=== PATIENT | female | born 1990 | race Caucasian/White ===

== ENCOUNTER 2016-09-14 09:03 | Emergency (ER) | payer MEDICAID ==
[~2016-09-14] VITALS: Ht 167.6 cm; Wt 77.1 kg
[2016-09-14 09:07] VITALS: BP 122/85; PULSE 93; RESP 18; TEMP 98.1; O2SAT 99
--- NOTE | 2016-09-14 09:12 | NUR ---
Patient to ER bed 5 to gown for evaluation. Side rails up. Report given to Rickey ARREOLA.
--- NOTE | 2016-09-14 09:15 | NUR ---
Pt c/o extended period x12 days. Denies severe pain, states "normal period cramping". Denies passing clots. Using 2 pads/day. Took test 09/04, results negative.
--- NOTE | 2016-09-14 09:22 | NUR ---
ER Dr. Salazar at bedside examining patient.
[2016-09-14 09:31] LABS: BILIRUBIN,URINE NEGATIVE (NEGATIVE); BLOOD, URINE 3+ (NEGATIVE); CLARITY/URINE CLEAR (CLEAR); COLOR,URINE YELLOW (YELLOW); GLUCOSE,URINE NEGATIVE (NEGATIVE); KETONES,URINE NEGATIVE (NEGATIVE); LEUKOCYTE ESTERASE ,URINE NEGATIVE (NEGATIVE); NITRITE, URINE NEGATIVE (NEGATIVE); PROTEIN URINE NEGATIVE (NEGATIVE); UROBILINOGEN,URINE 0.2 (0.2-1.0)
[2016-09-14 09:42] LABS: BASOPHILS # (AUTO) 0.1 K/uL (0.0-0.2); BASOPHILS % (AUTO) 0.7 % (0.0-2.0); EOSINOPHILS # (AUTO) 0.2 K/uL (0.0-0.4); EOSINOPHILS % (AUTO) 2.1 % (0.0-4.0); HEMATOCRIT 38.9 % (36-48); HEMOGLOBIN 12.9 g/dL (12.0-16.0); LYMPHOCYTES # (AUTO) 2.1 K/uL (1.0-5.5); LYMPHOCYTES % (AUTO) 28.1 % (20.5-51.5); MEAN CORPUSCULAR HEMOGLOBIN 29 pg (27-31); MEAN CORPUSCULAR HGB CONC 33 % (32-36); MEAN CORPUSCULAR VOLUME 86 fL (79.0-98.0); MONOCYTES # (AUTO) 0.6 K/uL (0.0-1.0); MONOCYTES % (AUTO) 7.6 % (1.7-9.3); NEUTROPHILS # (AUTO) 4.3 K/uL (1.8-7.7); NEUTROPHILS % (AUTO) 61.5 % (40.0-70.0); PLATELET COUNT (AUTO) 320 K/uL (130-430); RED BLOOD CELL COUNT(AUTO) 4.51 MIL/uL (4.2-6.2); RED CELL DISTRIBUTION WIDTH 12.6 % (9.0-15.0); WHITE BLOOD COUNT (AUTO) 7.3 K/uL (4.8-10.8)
[2016-09-14 09:49] LABS: BACTERIA,URINE FEW /HPF (None Seen); MUCUS,URINE None Seen /LPF (None Seen); RBC,URINE 50-80 /HPF (0-3); WBC,URINE 0-3 /HPF (0-3)
--- NOTE | 2016-09-14 09:54 | NUR ---
Back from ultra sound ambulatory with steady gait. Tolerated well.
[2016-09-14 10:37] VITALS: BP 118/81; PULSE 88; RESP 16; TEMP 98.1; O2SAT 99
--- NOTE | 2016-09-14 10:37 | NUR ---
Patient given written and verbal discharge instructions and verbalizes understanding. ER MD discussed with patient the results and treatment provided. Given copies of tests performed in ER. Patient in stable condition. ID arm band removed. Rx of ortho tri-cyclen given. Patient educated on pain management and to follow up with PMD. Pain Scale 0/10. Opportunity for questions provided and answered.
== END 2016-09-14 10:37 | disposition home or self-care (01) ==
LOC: SED 09:03
DX: N93.8 Other specified abnormal uterine and vaginal bleeding (principal)
CPT/HCPCS: 36415; 76830-TC; 76857; 81000-TC; 81025; 84702-TC; 85025; 86900; 86901; 99285

== ENCOUNTER 2020-12-08 03:37 | Emergency (ER) | payer MEDICAID ==
[~2020-12-08] VITALS: Ht 167.6 cm; Wt 97.5 kg
[2020-12-08 03:45] VITALS: BP_SYST 126
[2020-12-08 04:13] LABS: BILIRUBIN,URINE NEGATIVE (NEGATIVE); BLOOD, URINE NEGATIVE (NEGATIVE); CLARITY/URINE CLEAR (CLEAR); COLOR,URINE YELLOW (YELLOW); GLUCOSE,URINE NEGATIVE (NEGATIVE); KETONES,URINE NEGATIVE (NEGATIVE); LEUKOCYTE ESTERASE ,URINE NEGATIVE (NEGATIVE); NITRITE, URINE NEGATIVE (NEGATIVE); PROTEIN URINE NEGATIVE (NEGATIVE); UROBILINOGEN,URINE 0.2 (0.2-1.0)
[2020-12-08] MEDS ORDERED: DIAZEPAM 5 MG TABLET (VALIUM) PO ONE (04:30)
[2020-12-08] MEDS ORDERED: KETOROLAC TROMETHAMINE 60 MG/2 ML VIAL IM ONE ×2 (04:30)
[2020-12-08] MEDS ORDERED: NAPR-1172 PO (05:09)
[2020-12-08] MEDS ORDERED: CYCL-10 PO (05:09)
[2020-12-08] MEDS ORDERED: CYCLOBENZAPRINE HCL 10 MG TABLET (FLEXERIL) PO ONE (05:15)
[2020-12-08 05:42] VITALS: BP_SYST 122
== END 2020-12-08 05:42 | disposition home or self-care (01) ==
LOC: SED 03:37
DX: M54.5 Low back pain (principal); Z79.899 Other long term (current) drug therapy
CPT/HCPCS: 81003; 81025; 96372; 99283; J1885

== ENCOUNTER 2023-02-22 21:15 | Emergency (ER) | payer MEDICAID ==
[~2023-02-22] VITALS: Ht 165.1 cm; Wt 99.8 kg
[~2023-02-22 21:15] MED LIST: CYCL10TA24 PO; NAPR-1172 PO
[2023-02-22 21:23] VITALS: BP_SYST 116; PULSE 103; RESP 18; TEMP 98.2; O2SAT 97
[2023-02-22 22:32] LABS: BILIRUBIN,URINE NEGATIVE (NEGATIVE); BLOOD, URINE 3+ (NEGATIVE); CLARITY/URINE SL CLOUDY (CLEAR); COLOR,URINE YELLOW (YELLOW); GLUCOSE,URINE NEGATIVE (NEGATIVE); KETONES,URINE NEGATIVE (NEGATIVE); LEUKOCYTE ESTERASE ,URINE TRACE (NEGATIVE); NITRITE, URINE NEGATIVE (NEGATIVE); PROTEIN URINE TRACE (NEGATIVE); UROBILINOGEN,URINE 0.2 (0.2-1.0)
[2023-02-22 23:22] LABS: BACTERIA,URINE FEW /HPF (None Seen); RBC,URINE >100 /HPF (0-3)
[2023-02-22 23:23] LABS: MUCUS,URINE None Seen /LPF (None Seen)
[2023-02-22] MEDS ORDERED: KETOROLAC TROMETHAMINE 60 MG/2 ML VIAL IM ONE (23:30)
[2023-02-22] MEDS ORDERED: IBUP-1971 PO (23:58)
[2023-02-22] MEDS ORDERED: HYDR-3917 PO (23:58)
[2023-02-23 00:04] VITALS: BP_SYST 116; PULSE 103; RESP 18; TEMP 98.2; O2SAT 97
== END 2023-02-23 00:04 | disposition home or self-care (01) ==
LOC: SED 21:15
DX: M54.50 Low back pain, unspecified (principal); Z79.899 Other long term (current) drug therapy
CPT/HCPCS: 99283; 81000; 87086; 81025; 96372; J1885